=== PATIENT | female | born 1970 | race Caucasian/White ===

== ENCOUNTER 2021-02-08 22:10 | Emergency (ER) | payer OTHER ==
[2021-02-08 23:37] LABS: Absolute Lymphocytes (CBC) 2.7 K/uL (0.7-4.9); Basophils % 0.5 % (0-1.3); Hematocrit 41.2 % (36.0-45.0); MPV 7.8 fL (7.6-11.3); RBC Red Blood Cell Count 4.58 M/uL (3.86-4.86)
[2021-02-08 23:53] LABS: ALT/SGPT 25 U/L (12-78); AST/SGOT 12 U/L (15-37); Albumin 3.7 g/dL (3.4-5.0); Alkaline Phosphatase 74 U/L (45-117); BUN Blood Urea Nitrogen 13 mg/dL (7-18); Bicarbonate 28 mmol/L (21-32); Bilirubin Direct 0.1 mg/dL (0-0.2); Bilirubin Total 0.4 mg/dL (0.2-1.0); Glucose Level 115 mg/dL (74-106); Magnesium 2.4 mg/dL (1.8-2.4); NT PRO-BNP 20 pg/mL (<125); Potassium 3.4 mmol/L (3.5-5.1); Protein, Total 7.8 g/dL (6.4-8.2); Sodium Level 143 mmol/L (136-145); Troponin (Emerg Dept Use Only) < 0.02 ng/mL (0.0-0.045)
[2021-02-08 23:55] LABS: Protime INR 1.14
--- NOTE | 2021-02-09 01:19 | ER ---
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 Coronavirus screen: At this time, the client does not indicate any symptoms associated with coronavirus-19. Ebola Screen: No symptoms or risks identified at this time. Initial Sepsis Screen: Does the patient meet any 2 criteria? No. Patient's initial sepsis screen is negative. Does the patient have a suspected source of infection? No. Patient's initial sepsis screen is negative. Risk Assessment: Do you want to hurt yourself or someone else? Patient reports no desire to harm self or others. Onset of symptoms was February 08, 2021. 23:03 Acuity: AJ 3 lp1 23:03 Method Of Arrival: Ambulatory lp1 23:05 Note Reports symptoms resolved at this time. 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 - Social history:: Smoking status: Patient denies any tobacco usage or history of. Vital Signs: 23:03 BP 128 / 81; Pulse 75; Resp 18; Temp 97.6(TE); Pulse Ox 98% on R/A; Weight 70.31 kg lp1 (R); Height 5 ft. 4 in. (162.56 cm); 23:03 Body Mass Index 26.61 (70.31 kg, 162.56 cm) lp1 ED Course: 22:14 Patient arrived in ED. wm 23:03 Inserted saline lock: 22 gauge in right antecubital area, using aseptic technique. lp1 Blood collected. 23:05 Triage completed. lp1 23:05 Patient maintains SpO2 saturation greater than 95% on room air. lp1 23:05 Arm band placed on. EKG completed in triage. Results shown to MD. lp1 02/09 00:04 Jamarcus العلي PA is PHCP. [facility] 00:04 Jermaine Hogan MD is Attending Physician. [facility] 00:14 XRAY Chest (1 view) In Process Unspecified. EDMS 00:30 Darnell Cardona, RN is Primary Nurse. mr2 Administered Medications: No medications were administered Outcome: 01:18 Discharge ordered by MD. larry 02:03 Patient left the ED. 1 Signatures: Dispatcher [employer] EDNC Jamarcus العلي PA PA jmm Pena, Laura, RN RN lp1 Maggie Crain Darnell Cardona, RN RN mr2
--- NOTE | 2021-02-09 01:19 | EDPHYS ---
Physician Documentation [facility] Name: Deb Holbrook Age: 50 yrs Sex: Female : 1970 Arrival Date: 02/08/2021 Time: 22:14 Bed 24 Private MD: ED Physician Jermaine Hogan HPI: 02/09 01:14 This 50 yrs old Female presents to ER via Ambulatory with complaints of Chest Pain > 30 jmm y/o, HR-140. 01:14 The patient or guardian reports chest pain that is located primarily in the substernal [facility] area. Onset: acutely, 5 hour(s) ago. The pain does not radiate. Associated signs and symptoms: Pertinent positives: shortness of breath. The chest pain is described as aching. Duration: The patient or guardian reports a single episode, that lasted 3 minute(s). Modifying factors: The symptoms are alleviated by nothing. the symptoms are aggravated by nothing. This is a 50-year-old female with no chronic medical conditions presents emerged department with complaints of racing heartbeat for approximately 3 minutes which occurred around 6 PM today. Patient states this occurred while she was walking. States that she has had some mild chest soreness since. Currently denies shortness of breath, fever, vomiting, abdominal pain. Denies history of CAD. States having some family history of CAD patient denies smoking or recreational drug use.. 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 - Social history:: Smoking status: Patient denies any tobacco usage or history of. ROS: 02/09 01:14 Constitutional: Negative for fever, chills, and weight loss. jmm Cardiovascular: Positive for chest pain, palpitations. All other systems are negative. Exam: 01:14 Constitutional: This is a well developed, well nourished patient who is awake, alert, jmm and in no acute distress. Head/Face: atraumatic. Eyes: EOMI, no conjunctival erythema appreciated ENT: Moist Mucus Membranes Neck: Trachea midline, Supple Chest/axilla: Normal chest wall appearance and motion. 01:14 Respiratory: Normal respirations, no respiratory distress appreciated Abdomen/GI: Non distended, soft Back: Normal ROM Skin: General appearance color normal MS/ Extremity: Moves all extremities, no obvious deformities appreciated, no edema noted to the lower extremities Neuro: Awake and alert, normal gait Psych: Behavior is normal, Mood is normal, Patient is cooperative and pleasant 01:14 Cardiovascular: Rate: normal, Rhythm: regular. Vital Signs: 02/08 23:03 BP 128 / 81; Pulse 75; Resp 18; Temp 97.6(TE); Pulse Ox 98% on R/A; Weight 70.31 kg lp1 (R); Height 5 ft. 4 in. (162.56 cm); 23:03 Body Mass Index 26.61 (70.31 kg, 162.56 cm) lp1 MDM: 02/09 01:13 Patient medically screened. erwin 01:15 Data reviewed: vital signs, nurses notes. Counseling: I had a detailed discussion with erwin the patient and/or guardian regarding: the historical points, exam findings, and any diagnostic results supporting the discharge/admit diagnosis, lab results, radiology results, the need for outpatient follow up, to return to the emergency department if symptoms worsen or persist or if there are any questions or concerns that arise at home. Refusal of service: The patient/guardian displays adequate decision making capability and despite a detailed discussion of alternatives, benefits, risks, and consequences refuses: Admission to the hospital for further work-up and treatment. 01:18 HEART Score: History: Slightly Suspicious (0), ECG: Non specific repolarization jmm disturbance / LBTB / PM (1), Age: > 45 and < 65 years (1), Risk Factors: 1 or 2 risk factors (1), Troponin: < or = 1 x Normal Limit (0), Total Score = 3. 02/08 23:02 Order name: Basic Metabolic Panel; Complete Time: 00:05 lp1 02/08 23:02 Order name: CBC with Diff; Complete Time: 00:05 lp1 02/08 23:02 Order name: LFT's; Complete Time: 00:05 lp1 02/08 23:02 Order name: Magnesium; Complete Time: 00:05 lp1 02/08 23:02 Order name: NT PRO-BNP; Complete Time: 00:05 1 02/08 23:02 Order name: PT-INR; Complete Time: 00:05 1 02/08 23:02 Order name: Troponin (emerg Dept Use Only); Complete Time: 00:05 lp1 02/08 23:02 Order name: XRAY Chest (1 view) [facility] 02/08 23:02 Order name: EKG; Complete Time: 23:22 1 02/08 23:02 Order name: Cardiac monitoring; Complete Time: 00:55 1 02/08 23:02 Order name: EKG - Nurse/Tech; Complete Time: 23:02 1 02/08 23:02 Order name: IV Saline Lock; Complete Time: 23:02 [facility] 02/08 23:02 Order name: Labs collected and sent; Complete Time: 23:03 1 02/08 23:02 Order name: O2 Per Protocol; Complete Time: 00:55 1 02/08 23:02 Order name: O2 Sat Monitoring; Complete Time: 00:55 lp Administered Medications: No medications were administered Disposition: 06:07 Co-signature as Attending Physician, Jermaine Hogan MD. [email or web address] Disposition Summary: 02/09/21 01:18 Discharge Ordered Location: Home jm Condition: Stable jmm Diagnosis - Chest pain, unspecified jmm - Palpitations jmm Followup: jmm - With: Private Physician - When: 1 - 2 days - Reason: Recheck today's complaints, Continuance of care, Re-evaluation by your physician Discharge Instructions: - Discharge Summary Sheet jmm - Nonspecific Chest Pain, Adult jmm - Palpitations jm Forms: - Medication Reconciliation Form jmm - Thank You Letter jmm - Antibiotic Education jmm - Prescription Opioid Use jmm Signatures: Dispatcher [employer] EDJamarcus Vazquez PA PA jmm Pena, Laura, RN RN [facility] Jermaine Hogan MD MD [email or web address]
[2021-02-09 02:11] VITALS: BP 128/81; TEMP 97.6; O2SAT 98
--- NOTE | 2021-02-09 08:37 | RAD REPORT ---
EXAM DESCRIPTION: RAD - Chest Single View - 02/09/2021 12:14 am CLINICAL HISTORY: CHEST PAIN Chest pain. COMPARISON: No comparisons FINDINGS: Portable technique limits examination quality. The lungs are grossly clear. The heart is normal in size. No displaced fractures. IMPRESSION: No acute intrathoracic process suspected.
--- NOTE | 2021-02-11 08:10 | EKG ---
Test Date: 2021-02-08 Test Time: 22:50:12 Photographic Intelligence Officer: MIKA MEASUREMENT RESULTS: Intervals: Rate: 72 VT: 166 QRSD: 92 QT: 394 QTc: 431 [place]: P: 76 VT: 166 QRS: 84 T: 69 INTERPRETIVE STATEMENTS: Sinus rhythm with marked sinus arrhythmia Otherwise normal ECG No previous ECG available for comparison Electronically Signed On 02-11-21 08:04:03 SPECIAL EDUCATION EDUCATIONAL ASSISTANT by Sea Bray
== END 2021-02-09 02:03 | disposition home or self-care (01) ==
LOC: ER 22:10
DX: R00.2 Palpitations (principal); Z88.3 Allergy status to other anti-infective agents
CPT/HCPCS: 36415; 71045; 80048; 80076; 83735; 83880; 84484; 85025; 85610; 93005; 99284